=== PATIENT | female | born 1995 | race Hispanic/Latino ===

== ENCOUNTER 2021-03-09 15:32 | Emergency (ER) | payer SELFPAY ==
[2021-03-09 15:38] VITALS: BP 135/94; PULSE 81; RESP 16; TEMP 37.1; O2SAT 100
--- NOTE | 2021-03-09 16:00 | ED.SKABFB ---
HPI - Skin/Abscess/Foreign Bdy General Chief complaint: Skin/Abscess/Foreign Body Stated complaint: red patches on skin Time Seen by Provider: 03/09/21 16:00 Source: patient and RN notes reviewed History of Present Illness HPI narrative: Patient is a 25-year-old female who presents the urgent care with complaints of a rash to the arms, legs, ankles, torso and back for the last month. Patient states that it is itchy at times and rough . Patient states that she has been using Eucerin cream to the areas with mild improvement. Denies of any recent change in lotions, creams, detergents. Patient states she has drastically changed her diet and thought that the rash may have had something to do with that . Patient denies any fevers. No other acute complaints. No acute distress noted. Patient aware of the plan of care. Some parts of this dictation were generated by voice recognition software and may contain typographical and/or grammatical inaccuracies. Related Data Allergies Allergy/AdvReac Type Severity Reaction Status Date / Time Penicillins Allergy Hives Verified 03/09/21 15:45 Review of Systems Review of Systems: Narrative: CONSTITUTIONAL: Denies fever, chills, or sweats. EYES: Denies visual changes, redness, or discharge. ENT: Denies rhinorrhea, congestion, sore throat, or otalgia. CARDIOVASCULAR: Denies chest pain, palpitations, or edema. RESPIRATORY: Denies cough or dyspnea. GASTROINTESTINAL: Denies abdominal pain, nausea, vomiting, or diarrhea. GENITOURINARY: Denies dysuria or hematuria. SKIN: Reports of rash scattered to arms, legs, torso and back MUSCULOSKELETAL: Denies back pain, joint pain, or myalgia. NEUROLOGIC: Denies headache, numbness, or weakness. All other systems reviewed are negative, except as documented in HPI. PMFSH Social History Social History Gender identity (if verbalized by the patient): Female Comments At the time of my signature, I reviewed and agree with the nursing past medical, surgical, social, and family history. There is no relevant family history pertinent to the patient complaint. Exam Narrative: Exam Narrative: GENERAL: This is a well-nourished, well-developed patient, in no apparent distress. HEAD: normocephalic, atraumatic. EYES: PERRL. Sclera clear/white. Vision is grossly intact. EARS: External ears normal NOSE: External nose normal with no obvious nasal discharge, nares without redness, no rhinorrhea. THROAT: Mucous membranes moist NECK: Neck supple SKIN: Plaque-like eczema patches noted to bilateral arms, torso, back, and bilateral lower legs/ankles NEURO: awake, alert, and oriented to person, place and time. There were no obvious focal neurologic abnormalities. EXTREMITIES: No clubbing, cyanosis, or edema. Course Vital Signs Vital signs: Vital Signs Temperature 98.8 F 03/09/21 15:38 Pulse Rate 81 03/09/21 15:38 Respiratory Rate 16 03/09/21 15:38 Blood Pressure 135/94 H 03/09/21 15:38 Pulse Oximetry 100 03/09/21 15:38 Temperature 98.8 F 03/09/21 15:38 Pulse Rate 81 03/09/21 15:38 Respiratory Rate 16 03/09/21 15:38 Blood Pressure 135/94 H 03/09/21 15:38 Pulse Oximetry 100 03/09/21 15:38 Reviewed-patient is informed that they may have pre-hypertension or hypertension based on a blood pressure reading in the department. I recommend the patient call the primary care provider listed on their discharge instructions or a physician of their choice this week to arrange follow-up for further evaluation of possible pre-hypertension or hypertension. MDM - Skin/Abscess/Foreign Bdy MDM Narrative Medical decision making narrative: Advised the patient to use prescription cream to the affected areas avoiding the face, groin, underarms. Complete the steroid regimen as prescribed. Be sure to eat and drink with the medications. Make sure to hydrate the skin. May obtain [id number] eczema cream/lotion such as Aveeno or Aquaphor. Follow-up with your
== END 2021-03-09 16:11 | disposition home or self-care (01) ==
PROVIDERS: Emergency Provider Nurse Practitioner Family
DX: L30.9 Dermatitis, unspecified (principal)
CPT/HCPCS: 99213; G0463